=== PATIENT | male | born 1950 | race Caucasian/White ===

== ENCOUNTER 2018-11-27 18:30 | Emergency (ER) | payer OTHER ==
[2018-11-27 18:36] VITALS: BMI 21.5
[2018-11-27] MEDS ORDERED: DiphenhydrAMINE 50 mg/ml Inj IVP STA (18:37)
[2018-11-27 18:44] VITALS: O2SAT 100
[2018-11-27] MEDS ORDERED: Sodium Chloride 0.9% 1,000 ML IV SCH (18:45)
[2018-11-27] MEDS ORDERED: Magnesium Sulfate 2 gm/50 ml 2 GM/50 ML BAG IVPB ONE (18:54)
--- NOTE | 2018-11-27 18:56 | CT ---
Date of service: 11/27/2018 PROCEDURE: CT HEAD WITHOUT CONTRAST. HISTORY: headache LEFT side deficit COMPARISON: None available. TECHNIQUE: Axial computed tomography images were obtained through the head/brain without intravenous contrast. Radiation dose: Total exam DLP = 839.61 mGy-cm. This CT exam was performed using one or more of the following dose reduction techniques: Automated exposure control, adjustment of the mA and/or kV according to patient size, and/or use of iterative reconstruction technique. FINDINGS: HEMORRHAGE: No intracranial hemorrhage. BRAIN: Right temporoparietal encephalomalacia. Surgical clips near the right MCA bifurcation. VENTRICLES: Unremarkable. No hydrocephalus. CALVARIUM: Right temporoparietal craniotomy. PARANASAL SINUSES: Unremarkable as visualized. No significant inflammatory changes. MASTOID AIR CELLS: Unremarkable as visualized. No inflammatory changes. OTHER FINDINGS: None. IMPRESSION: Surgical clips near the right MCA bifurcation with postsurgical changes. Heterogeneous right temporoparietal encephalomalacia. There is chronic component to this, but subacute component cannot be entirely excluded in the absence of prior imaging. Findings discussed with Dr. Gandhi by Dr. Leung at 6:49 p.m. on 11/27/2018.
[2018-11-27 18:57] LABS: BASO % 0.9 % (0.0-2.0); EOS # 0.3 K/uL (0.0-0.7); EOS % 6.9 % (0.0-4.0); HEMOGLOBIN 13.9 g/dL (12.0-18.0); LYMPH # 1.3 K/uL (1.0-4.3); LYMPH % 27.8 % (20.0-40.0); MEAN CELL VOLUME 92.2 fl (80.0-94.0); MEAN CORPUSCULAR HEMOGLOBIN 30.8 pg (27.0-31.0); MEAN CORPUSCULAR HGB CONC 33.4 g/dL (33.0-37.0); MEAN PLATELET VOLUME 8.8 fl (7.2-11.7); MONO # 0.4 K/uL (0.0-0.8); MONO % 8.5 % (0.0-10.0); NEUT # 2.6 K/uL (1.8-7.0); NEUT % 55.9 % (50.0-75.0); NRBC % 0.1 % (0.0-0.0); RBC 4.52 Mil/uL (4.40-5.90); RED CELL DISTRIBUTION WIDTH 12.7 % (11.5-14.5); WHITE BLOOD COUNT 4.6 K/uL (4.8-10.8)
--- NOTE | 2018-11-27 18:57 | RAD ---
Date of service: 11/27/2018 HISTORY: Code Stroke COMPARISON: No prior. FINDINGS: LUNGS: No active pulmonary disease. PLEURA: No significant pleural effusion identified, no pneumothorax apparent. CARDIOVASCULAR: Aortic atherosclerotic calcifications. Cardiomediastinal silhouette enlarged. OSSEOUS STRUCTURES: Spinal degenerative changes. VISUALIZED UPPER ABDOMEN: Normal. OTHER FINDINGS: None. IMPRESSION: No active disease.
[2018-11-27 19:03] LABS: PROTHROMBIN TIME 11.1 Seconds (9.8-13.1)
[2018-11-27 19:05] LABS: PARTIAL THROMBOPLASTIN TIME 35.1 Seconds (25.6-37.1)
[2018-11-27 19:08] LABS: ALB/GLOB RATIO 1.3 (1.0-2.1); ALBUMIN 4.1 g/dL (3.5-5.0); ALT/SGPT 26 U/L (21-72); AST/SGOT 24 U/L (17-59); BLOOD UREA NITROGEN 27 mg/dl (9-20); CALCIUM 8.7 mg/dL (8.4-10.2); GFR NON-AFRICAN AMERICAN > 60; HDL CHOLESTEROL 44 MG/DL (30-70)
[2018-11-27 19:18] LABS: LDL CHOLESTEROL 110 mg/dL (0-129)
[2018-11-27] MEDS ORDERED: Iodixanol 320 MG/ML 100 ML BOTTLE IV ONE ×2 (19:26→19:46)
[2018-11-27] MEDS ORDERED: Sodium Chloride 0.9% 50 ML IV ONE ×2 (19:26→19:46)
--- NOTE | 2018-11-27 20:09 | ED PDOC ---
HPI:STROKE - Time Time: 18:30 - Historian Historian: Patient, Family - Chief Complaint Chief Complaint: Vision loss - Onset Date: 11/24/18 - Timing Timing: Intermittent - Quality of Pain Quality of Pain:: Aching - TPA Positive for Contraindication: Yes - Notes: Notes:: RIGHT sided headache for 3 days associated with intermittent LEFT sided zach anopsia Pt has h/o surgically clipped aneurysm RIGHT MCA in 1991 Denies thunderclap headache Denies focal weakness/numbness or slurred speech Denies nausea or vomiting PMD Dr Howell NIHSS Stroke Scale - Date/Time Evaluation Performed Date Performed: 11/27/18 Time Performed: 18:30 When Was NIHSS Performed: Baseline - How Severe is the Stroke Level of Consciousness: 0=Alert LOC to Questions: 0=Both comments correct LOC to commands: 0=Obeys both correctly Best Gaze: 0=Normal Visual: 0=No visual loss Facial: 0=Normal Motor Arm - Left: 0=No drift Motor Arm - Right: 0=No drift Motor Leg - Left: 0=No drift Motor Leg - Right: 0=No drift Limb Ataxia: 0=Absent Sensory: 0=Normal Best Language: 0=No aphasia Dysarthia: 0=Normal articulation Extinction & Inattention (Neglect): 0=Normal, no object Score: 0 rTPA Inclusion/Exclusion - Refusal of Treatment Patient Refused Treatment: No - Inclusion Criteria for Altepase Patient is 18 years or Older: Yes The Clinical Diagnosis of Ischemic Stroke That is Causing a Potentially Disabling Neurological Deficit: No Time of Onset is Well Established to be Less Than 270 Minute Before Treatment Would Begin: No Risk/Benefit Discussed With Patient/Family Member Present: No Past Medical History Reviewed: Historical Data, Nursing Documentation, Vital Signs Vital Signs: Last Vital Signs Temp Pulse 66 11/27/18 19:27 Resp 18 11/27/18 19:27 BP 167/94 H 11/27/18 19:27 Pulse Ox 100 11/27/18 19:27 - Medical History PMH: HTN - Surgical History Other surgeries: Aneurysm repair - Family History Family History: States: No Known Family Hx - Social History Current smoker - smoking cessation education provided: No - Allergies Allergies/Adverse Reactions: Allergies Allergy/AdvReac Type Severity Reaction Status Date / Time Iodinated Contrast- Oral and Allergy SWELLING Verified 11/27/18 18:37 IV Dye Review of Systems ROS Statement: Except As Marked, All Systems Reviewed And Found Negative (and as per HPI) Eyes: Positive for: Vision Change Neurological: Positive for: Headache Physical Exam - Reviewed Nursing Documentation Reviewed: Yes Vital Signs Reviewed: Yes - Physical Exam Appears: Positive for: Non-toxic, No Acute Distress Head Exam: Positive for: ATRAUMATIC, NORMOCEPHALIC Skin: Positive for: Warm, Dry Eye Exam: Positive for: EOMI, PERRL ENT: Negative for: Pharyngeal Erythema, Tonsillar Exudate Neck: Positive for: Painless ROM, Supple Cardiovascular/Chest: Positive for: Regular Rate, Rhythm. Negative for: Murmur Respiratory: Positive for: Normal Breath Sounds. Negative for: Respiratory Distress Gastrointestinal/Abdominal: Positive for: Soft. Negative for: Tenderness Back: Positive for: Normal Inspection. Negative for: Decreased ROM Extremity: Positive for: Normal ROM. Negative for: Deformity Lymphatic: Negative for: Adenopathy Neurologic/Psych: Positive for: Alert, guest services associate II-XII (intact), Oriented. Negative for: Motor/Sensory Deficits - Laboratory Results Result Diagrams: 11/27/18 18:45 11/27/18 18:45 Lab Results: PT 11.1 Seconds (9.8-13.1) 11/27/18 18:45 INR 1.0 11/27/18 18:45 APTT 35.1 Seconds (25.6-37.1) 11/27/18 18:45 Troponin I < 0.0120 ng/mL (0.00-0.120) 11/27/18 18:45 Total Bilirubin 0.7 mg/dl (0.2-1.3) 11/27/18 18:45 AST 24 U/L (17-59) 11/27/18 18:45 ALT 26 U/L (21-72) 11/27/18 18:45 Alkaline Phosphatase 51 U/L (38-126) 11/27/18 18:45 Total Protein 7.2 G/DL (6.3-8.2) 11/27/18 18:45 Albumin 4.1 g/dL (3.5-5.0) 11/27/18 18:45 Globulin 3.1 gm/dL (2.2-3.9) 11/27/18 18:45 Albumin/Globulin Ratio 1.3 (1.0-2.1) 11/27/18 18:45 - ECG O2 Sat by Pulse Oximetry: 100 Pulse Ox Interpretation: Normal - Critical Care Total Time (In Min): 30 Documented Critical Care: Time excludes all time spent performint seperately billable procedures Medical Decision Making Medical Decision Making: 18:[address] Accession No. 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 HISTORY: headache LEFT side deficit COMPARISON: None available. TECHNIQUE: Axial computed tomography images were obtained through the head/brain without intravenous contrast. Radiation dose: Total exam DLP = 839.61 mGy-cm. This CT exam was performed using one or more of the following dose reduction techniques: Automated exposure control, adjustment of the mA and/or kV according to patient size, and/or use of iterative reconstruction technique. FINDINGS: HEMORRHAGE: No intracranial hemorrhage. BRAIN: Right temporoparietal encephalomalacia. Surgical clips near the right MCA bifurcation. VENTRICLES: Unremarkable. No hydrocephalus. CALVARIUM: Right temporoparietal craniotomy. PARANASAL SINUSES: Unremarkable as visualized. No significant inflammatory changes. MASTOID AIR CELLS: Unremarkable as visualized. No inflammatory changes. OTHER FINDINGS: None. IMPRESSION: Surgical clips near the right MCA bifurcation with postsurgical changes. Heterogeneous right temporoparietal encephalomalacia. There is chronic component to this, but subacute component cannot be entirely excluded in the absence of prior imaging. Findings discussed with Dr. Gandhi by Dr. Leung at 6:49 p.m. on 11/27/2018. Pt's surgical clipping was done in 1991. It is unknown if it is MRI compatible. MRI can not be performed until this is verified. DW Dr Reid who advises CTA Head and neck. Also advises Magnesium and decadron for headache. In addition, benadryl for pretreatment given due to pt's known h/o iodinated contrast allergy. 21:01 CTA Head and Neck EXAM: CTA Head and Neck with Intravenous Contrast. CLINICAL HISTORY: RT SIDED HEADACHE H/O ANEUSRYM TECHNIQUE: Axial CTA images of the head and neck performed with intravenous contrast. MIP reconstructed images were created and reviewed. 461.23 mGy-cm CONTRAST: With; [id number] [id number] was injected intravenously without incident. COMPARISON: None provided. 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 COMMON CAROTID ARTERIES No significant canal stenosis. No dissection or occlusion. EXTERNAL CAROTID ARTERIES Patent. NECK: INTERNAL CAROTID ARTERIES No stenosis by NASCET criteria. No dissection or occlusion. VERTEBRAL ARTERIES No significant canal stenosis. No dissection or occlusion. HEAD: ANTERIOR CEREBRAL ARTERIES No significant stenosis. No occlusion. No aneurysm. MIDDLE CEREBRAL ARTERIES No significant stenosis. No occlusion. There has been prior surgical repair/embolization coil placement within an aneurysm in the right M1-M2 MCA territory. POSTERIOR CEREBRAL ARTERIES No significant stenosis. No occlusion. No aneurysm. BASILAR ARTERY No significant stenosis. No occlusion. No aneurysm. OTHER: SOFT TISSUES No acute finding. BONES No acute osseous abnormality. Right frontal-temporal craniotomy defect from prior neurosurgical intervention. There is evidence of degenerative disc disease at C4-5 and C5-6. 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 IMPRESSION: 1. Evidence of prior aneurysm repair involving the right M1-M2 MCA territory 2. 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 3. Otherwise, unremarkable CTA of the head and neck. 2[address] Reid. Further eval to be performed tomorrow morning. DW pt and family findings. At this time pt would like to go home. He reports no worsening of symptoms, just slight sleepiness due to benadryl. Understands inpatient workup being offered at this time. 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 Dr Howell also in ER to evaluate patient patient and agrees with discharge. Disposition - Clinical Impression Clinical Impression: Headache Counseled Patient/Family Regarding: Studies Performed, Diagnosis, Need For Followup - Disposition Disposition: Routine/Home Disposition Time: 21:00 Condition: STABLE Additional Instructions: FOLLOWUP WITH NEUROLOGY SOON POSSIBLE FOR FURTHER MANAGEMENT CONTINUE BENADRYL AROUND THE CLOCK FOR THE NEXT 24 HOURS SECONDARY TO IODINE Instructions: Headache, Adult
--- NOTE | 2018-11-27 22:15 | CP.PCM.CON ---
History of Present Illness - History of Present Illness History of Present Illness: Seen and examined at the bed side. Presented with sudden worsening a 7 days ESCOBAR as the patient has Carias Aneurysm rupture and SAH S/P Clip in the in the past. Patient also had homonymous hemianopsia besides headache. No slurred speech or weakness the extremities in the ER code stroke was called, CT head without contrast with possible stroke versus encephalomalacia entertained. CT angios of the brain was done which showed old lesion. 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 ramírez discussed with Dr. Schaefer is a neurologist before making his decision. I have agreed with the family decision and requested to the patient to be discharged by the ER attending. Review of Systems - Review of Systems All systems: reviewed and no additional remarkable complaints except Review of Systems: as absove Past Patient History - CARDIAC Hx Hypertension: Yes Meds Allergies/Adverse Reactions: Allergies Allergy/AdvReac Type Severity Reaction Status Date / Time Iodinated Contrast- Oral and Allergy SWELLING Verified 11/27/18 18:37 IV Dye - Medications Medications: Current Medications Sodium Chloride (Sodium Chloride 0.9%) 1,000 mls @ 100 mls/hr IV .Q10H REGINE Last Admin: 11/27/18 19:05 Dose: 100 mls/hr Results - Vital Signs Recent Vital Signs: Last Vital Signs Temp Pulse 66 11/27/18 19:27 Resp 18 11/27/18 19:27 BP 167/94 H 11/27/18 19:27 Pulse Ox 100 11/27/18 21:35 - Labs Result Diagrams: 11/27/18 18:45 11/27/18 18:45 Labs: Laboratory Results - last 24 hr 11/27/18 11/27/18 11/27/18 18:33 18:45 18:45 WBC 4.6 L RBC 4.52 Hgb 13.9 Hct 41.7 MCV 92.2 MCH 30.8 MCHC 33.4 RDW 12.7 Plt Count 138 MPV 8.8 Neut % (Auto) 55.9 Lymph % (Auto) 27.8 [place] % (Auto) 8.5 Eos % (Auto) 6.9 H Baso % (Auto) 0.9 Neut # (Auto) 2.6 Lymph # (Auto) 1.3 [place] # (Auto) 0.4 Eos # (Auto) 0.3 Baso # (Auto) 0.0 PT INR APTT Sodium 136 Potassium 4.0 Chloride 99 Carbon Dioxide 30 Anion Gap 11 BUN 27 H Creatinine 1.0 Est GFR ( Amer) > 60 Est GFR (Non-Af Amer) > 60 POC Glucose (mg/dL) 107 Random Glucose 90 Hemoglobin A1c Calcium 8.7 Total Bilirubin 0.7 AST 24 ALT 26 Alkaline Phosphatase 51 Troponin I < 0.0120 Total Protein 7.2 Albumin 4.1 Globulin 3.1 Albumin/Globulin Ratio 1.3 Triglycerides 272 H Cholesterol 183 LDL Cholesterol Direct 110 HDL Cholesterol 44 Blood Type Blood Type Confirm Antibody Screen BBK History Checked 11/27/18 11/27/18 11/27/18 18:45 18:45 18:45 WBC RBC Hgb Hct MCV MCH MCHC RDW Plt Count MPV Neut % (Auto) Lymph % (Auto) [place] % (Auto) Eos % (Auto) Baso % (Auto) Neut # (Auto) Lymph # (Auto) [place] # (Auto) Eos # (Auto) Baso # (Auto) PT 11.1 INR 1.0 APTT 35.1 Sodium Potassium Chloride Carbon Dioxide Anion Gap BUN Creatinine Est GFR ( Amer) Est GFR (Non-Af Amer) POC Glucose (mg/dL) Random Glucose Hemoglobin A1c 5.3 Calcium Total Bilirubin AST ALT Alkaline Phosphatase Troponin I Total Protein Albumin Globulin Albumin/Globulin Ratio Triglycerides Cholesterol LDL Cholesterol Direct HDL Cholesterol Blood Type O POSITIVE Blood Type Confirm Antibody Screen Negative BBK History Checked No verified bt 11/27/18 19:54 WBC RBC Hgb Hct MCV MCH MCHC RDW Plt Count MPV Neut % (Auto) Lymph % (Auto) [place] % (Auto) Eos % (Auto) Baso % (Auto) Neut # (Auto) Lymph # (Auto) [place] # (Auto) Eos # (Auto) Baso # (Auto) PT INR APTT Sodium Potassium Chloride Carbon Dioxide Anion Gap BUN Creatinine Est GFR ( Amer) Est GFR (Non-Af Amer) POC Glucose (mg/dL) Random Glucose Hemoglobin A1c Calcium Total Bilirubin AST ALT Alkaline Phosphatase Troponin I Total Protein Albumin Globulin Albumin/Globulin Ratio Triglycerides Cholesterol LDL Cholesterol Direct HDL Cholesterol Blood Type Blood Type Confirm O POSITIVE Antibody Screen BBK History Checked Assessment & Plan (1) Old cerebrovascular accident (CVA) without late effect Status: Acute (2) Headache Status: Acute - Assessment and Plan (Free Text) Plan: D/c Home Outpatient MRI
[2018-11-27 22:43] VITALS: BP 139/85; PULSE 79; RESP 16
--- NOTE | 2018-11-28 12:03 | CT ---
Date of service: 11/27/2018 PROCEDURE: CT Angiography of the neck and brain with contrast HISTORY: Right-sided headache; history of aneurysm COMPARISON: Comparison made prior CT scan brain 11/27/2017. TECHNIQUE: Contiguous axial images of the neck and brain were obtained from the level of the vertex of the skull to the superior mediastinum in the arteriographic phase of enhancement. Coronal and sagittal reformats or also generated. IV contrast dose: 90 cc Visipaque 320 Radiation dose: Total exam DLP = 461.23 mGy-cm. This CT exam was performed using one or more of the following dose reduction techniques: Automated exposure control, adjustment of the mA and/or kV according to patient size, and/or use of iterative reconstruction technique. FINDINGS: There is mild aneurysmal dilatation of the ascending thoracic aorta which measures approximately 4 cm. Descending thoracic aorta measures approximately 2.7 cm.. Minimal on atherosclerotic plaque changes seen at the origins of the left subclavian and right brachiocephalic arteries. The common carotid arteries widely patent as are the bifurcations. Minute despite some minimal calcified plaque seen at the anteromedial border of the right carotid bifurcation. The internal carotid arteries including the petrous cavernous and supraclinoid segments also widely patent. Both vertebral arteries are patent throughout right-sided which is much larger in caliber/more dominant than the left side. Basilar artery patent. The visualized major branches of the [id number] are also patent the. There is an aneurysm clip in the region of the right MCA trifurcation region which results in surrounding streak and beam hardening artifact obscuring fine soft tissue detail. Possibility of residual aneurysm or aneurysm neck cannot be excluded based on this exam. If further evaluation is required, consider follow-up MRA and if this study is nondiagnostic for residual aneurysm or aneurysm neck formal four-vessel catheter angiogram may be necessary.. The distal branches of the anterior middle and posterior cerebral arteries are relatively symmetric. Right-sided pterional craniotomy defect present. OTHER FINDINGS: Mild multilevel degenerative spondylosis of the cervical spine. Note made of a few right sided palatine tonsilliths. Lung apices clear IMPRESSION: Very minor calcified plaque right carotid bifurcation with no significant stenosis.. Right-sided terminal craniotomy defect with aneurysm clip in the region of the right MCA trifurcation. The streak and beam hardening artifact emanating from the aneurysm clip reduces immediate surrounding soft tissue detail. Possibility of residual and a recurrent aneurysm or aneurysm neck and cannot be excluded based on this exam due to artifact. If further evaluation is required, consider follow-up MRA or formal. Four-vessel catheter angiogram as detailed above Mild aneurysmal dilatation of the ascending thoracic aorta as above.
--- NOTE | 2018-11-28 12:18 | CARD ---
APPROVED REPORT Date of service: 11/27/2018 EKG Measurement Heart [id number] <Conclusion> Normal sinus rhythm Normal Electrocardiogram
== END 2018-11-27 21:45 | disposition home or self-care (01) ==
LOC: H.ER 18:30
DX: H53.47 Heteronymous bilateral field defects (principal); R51 Headache; Z86.73 Personal history of transient ischemic attack (TIA), and cerebral infarction without residual deficits; I10 Essential (primary) hypertension; Z88.8 Allergy status to other drugs, medicaments and biological substances; Z98.890 Other specified postprocedural states; M50.30 Other cervical disc degeneration, unspecified cervical region
CPT/HCPCS: 70450; 70496; 70498; 71045; 80053; 80061; 82948; 83036; 84484; 85025; 85610; 85730; 86850; 86900; 93005; 96374; 96375; 99285; J1100; J1200; J7030; Q9967